=== PATIENT | male | born 1945 | race Caucasian/White ===

== ENCOUNTER 2023-10-03 11:50 | Outpatient (RCR) | payer MEDICARE, OTHER, SELFPAY | END 2023-10-29 23:59 | disposition home or self-care (01) | LOC: SPS 11:50 | PROVIDERS: Visit Provider Internal Medicine | DX: G20.B2 Parkinson's disease with dyskinesia, with fluctuations (principal); R49.0 Dysphonia; R53.1 Weakness; R26.89 Other abnormalities of gait and mobility | CPT/HCPCS: 92507; 92523; 92526; 92610; 97110; 97162; 97530 ==

== ENCOUNTER 2023-10-30 06:00 | Outpatient (RCR) | payer MEDICARE, OTHER, SELFPAY | END 2023-11-10 23:59 | disposition home or self-care (01) | LOC: SPS 06:00 | PROVIDERS: Visit Provider Internal Medicine | DX: R26.89 Other abnormalities of gait and mobility (principal); R53.1 Weakness; R13.12 Dysphagia, oropharyngeal phase; R49.0 Dysphonia; G20.B2 Parkinson's disease with dyskinesia, with fluctuations | CPT/HCPCS: 92507; 92526; 92610; 97110; 97112; 97530 ==

== ENCOUNTER → 2024-02-08 09:31 | Outpatient (BNVA) | payer MEDICARE, OTHER, SELFPAY | PROVIDERS: Visit Provider Nurse Practitioner Family | DX: L57.0 Actinic keratosis (principal); Z85.828 Personal history of other malignant neoplasm of skin; D22.62 Melanocytic nevi of left upper limb, including shoulder; I83.93 Asymptomatic varicose veins of bilateral lower extremities; L81.4 Other melanin hyperpigmentation; L57.8 Other skin changes due to chronic exposure to nonionizing radiation; L82.1 Other seborrheic keratosis | CPT/HCPCS: 17004; 99203 ==

== ENCOUNTER → 2024-06-18 14:06 | Outpatient (BNVA) | payer MEDICARE, OTHER, SELFPAY | PROVIDERS: Visit Provider Dermatology | DX: L82.1 Other seborrheic keratosis (principal); L72.0 Epidermal cyst; D18.01 Hemangioma of skin and subcutaneous tissue; Z08 Encounter for follow-up examination after completed treatment for malignant neoplasm; Z85.828 Personal history of other malignant neoplasm of skin; D48.5 Neoplasm of uncertain behavior of skin; L57.0 Actinic keratosis | CPT/HCPCS: 11102; 17000; 69100; 99213 ==

== ENCOUNTER → 2024-07-15 10:42 | Outpatient (BNVA) | payer MEDICARE, OTHER, SELFPAY | PROVIDERS: Visit Provider Dermatology | DX: D04.22 Carcinoma in situ of skin of left ear and external auricular canal (principal); L82.0 Inflamed seborrheic keratosis; L53.8 Other specified erythematous conditions; L29.89 Other pruritus; L57.0 Actinic keratosis | CPT/HCPCS: 17000; 17110; 17282 ==

== ENCOUNTER → 2024-12-19 12:54 | Outpatient (BNVA) | payer MEDICARE, OTHER, SELFPAY | PROVIDERS: Visit Provider Dermatology | DX: D18.01 Hemangioma of skin and subcutaneous tissue (principal); L98.8 Other specified disorders of the skin and subcutaneous tissue; L82.1 Other seborrheic keratosis; L72.0 Epidermal cyst; L73.8 Other specified follicular disorders | CPT/HCPCS: 17004; 17110; 99213 ==

== ENCOUNTER → 2025-06-09 09:55 | Outpatient (BNVA) | payer MEDICARE, OTHER, SELFPAY | PROVIDERS: Visit Provider Dermatology | DX: L82.1 Other seborrheic keratosis (principal); L21.8 Other seborrheic dermatitis; D18.01 Hemangioma of skin and subcutaneous tissue; L98.8 Other specified disorders of the skin and subcutaneous tissue; L72.0 Epidermal cyst; L73.8 Other specified follicular disorders; L85.3 Xerosis cutis; Z86.007 Personal history of in-situ neoplasm of skin; D48.5 Neoplasm of uncertain behavior of skin; L57.0 Actinic keratosis | CPT/HCPCS: 11102; 17000; 99214 ==

== ENCOUNTER → 2025-07-11 09:16 | Outpatient (BNVA) | payer MEDICARE, OTHER, SELFPAY | PROVIDERS: Visit Provider Dermatology | DX: L21.8 Other seborrheic dermatitis (principal); C44.629 Squamous cell carcinoma of skin of left upper limb, including shoulder | CPT/HCPCS: 11603; 13121; 99213 ==